=== PATIENT | female | born 1970 | race Caucasian/White ===

== ENCOUNTER 2017-04-14 21:40 | Emergency (ER) | payer BC ==
[~2017-04-14] VITALS: Ht 157.5 cm; Wt 80.0 kg
[2017-04-14 21:49] VITALS: Ht 157.5 cm; Wt 80.0 kg
--- NOTE | 2017-04-14 22:20 | ERA ---
ER Documentation Chief Complaint Date/Time DATE: 04/14/17 TIME: 22:19 Chief Complaint Bilateral leg edema x2 weeks. Hx of DM and HTN HPI The patient is a 46-year-old female, presenting to the ER because of chronic bilateral lower extremity edema, was for the last 2 weeks. She saw her doctor yesterday. She denies fever, chills, neck pain, chest pain, dyspnea, abdominal pain, dysuria, complaints of constipation. He does not smoke nor drink Past medical history: Diabetes mellitus, hypertension, CKD Past surgical history: None ROS All systems reviewed and are negative except as per history of present illness. Medications Home Meds Reported Medications Atorvastatin* (Atorvastatin*) 40 Mg Tablet, 40 MG PO QHS, #30 TAB 04/15/17 Metoprolol Tartrate* (Lopressor*) 25 Mg Tab, 25 MG PO BID, #60 TAB 04/15/17 Pentoxifylline* (Pentoxifylline*) 400 Mg Tablet.sa, 400 MG PO DAILY, TAB 04/15/17 Hydralazine Hcl* (Hydralazine Hcl*) 25 Mg Tab, 25 MG PO BEFORE MEALS, #120 TAB 04/15/17 Furosemide* (Furosemide*) 40 Mg Tablet, 40 MG PO AC BREAKFAST DINNER, TAB 04/15/17 Glipizide* (Glipizide*) 5 Mg Tablet, 5 MG PO AC BREAKFAST, TAB 04/15/17 Nifedipine* (Adalat CC*) 90 Mg Tablet.sa, 90 MG PO DAILY, #30 TAB.SA 04/15/17 Cholecalciferol* (Vitamin D3*) 1,000 Unit Tablet, 1000 UNIT PO DAILY, TAB 04/15/17 Allergies Allergies: Coded Allergies: No Known Allergy (Unverified , 04/14/17) Physical Exam Vitals Vital Signs Date Time Temp Pulse Resp B/P Pulse Ox O2 Delivery O2 Flow Rate FiO2 04/14/17 21:49 98.5 87 20 179/80 99 Physical Exam Const: No acute distress. Head: Atraumatic. Eyes: Normal Conjunctiva. ENT: Normal External Ears, Nose and Mouth. Neck: Full range of motion. No meningismus. Resp: Clear to auscultation bilaterally. Cardio: Regular rate and rhythm. Abd: Soft, non distended, normal bowel sounds, non tender. Skin: No petechiae or rashes. Back: No midline or flank tenderness. Ext: Bilateral lower extremity edema, minimal calf tenderness, no erythema, no crepitus Neur: Awake and alert. No focal deficit Psych: Normal Mood and Affect. Result Diagram: 04/14/17224804/14/172248 Results 24 hrs Laboratory Tests Test 04/14/17 22:49 04/15/17 00:04 White Blood Count 7.310^3/ul Red Blood Count 3.3210^6/ul Hemoglobin 10.0g/dl Hematocrit 28.2% Mean Corpuscular Volume 84.9fl Mean Corpuscular Hemoglobin 30.1pg Mean Corpuscular Hemoglobin Concent 35.5g/dl Red Cell Distribution Width 11.5% Platelet Count 56316^3/UL Mean Platelet Volume 10.1fl Neutrophils % 63.8% Lymphocytes % 21.4% Monocytes % 8.1% Eosinophils % 5.6% Basophils % 0.7% Nucleated Red Blood Cells % 0.0/100WBC Neutrophils # 4.710^3/ul Lymphocytes # 1.610^3/ul Monocytes # 0.610^3/ul Eosinophils # 0.410^3/ul Basophils # 0.110^3/ul Nucleated Red Blood Cells # 0.010^3/ul Prothrombin Time 11.9Sec Prothrombin Time Ratio 0.9 INR International Normalized Ratio 0.88 Activated Partial Thromboplast Time 24.4Sec Sodium Level 134mmol/L Potassium Level 4.6mmol/L Chloride Level 98mmol/L Carbon Dioxide Level 26mmol/L Anion Gap 15 Blood Urea Nitrogen 49mg/dl Creatinine 1.58mg/dl Glucose Level 383mg/dl Calcium Level 8.6mg/dl Total Bilirubin 0.1mg/dl Direct Bilirubin 0.00mg/dl Indirect Bilirubin 0.1mg/dl Aspartate Amino Transf (AST/SGOT) 25IU/L Alanine Aminotransferase (ALT/SGPT) 43IU/L Alkaline Phosphatase 198IU/L Total Protein 5.9g/dl Albumin 3.1g/dl Globulin 2.80g/dl Albumin/Globulin Ratio 1.10 Bedside Urine pH (LAB) 7.0 Bedside Urine Protein (LAB) 3+ Bedside Urine Glucose (UA) 0.50% Bedside Urine Ketones (LAB) Negative Bedside Urine Blood 1+ Bedside Urine Nitrite (LAB) Negative Bedside Urine Leukocyte Esterase (L Negative Procedures/MDM [facility] [address], [place], [place] [address] Radiology Main Line: [phone] DIAGNOSTIC IMAGING REPORT Patient: LAURENCE JIM : 1970 Age: 46 Sex: F MR #: [id number] DOS: 04/14/172235 Ordering MD: JEANINE MENDOZA MD Location: E/R Room/Bed: PROCEDURE: US bilateral lower extremity venous Doppler CLINICAL INDICATION: Bilateral swelling TECHNIQUE: Multiple sonographic images of the bilateral lower extremity deep venous system was obtained utilizing grayscale, color-flow, compressive sonography and Doppler imaging with augmentation. COMPARISON: There are no similar studies submitted for comparison. FINDINGS: There is normal compressibility and flow within the left common femoral, superficial femoral, popliteal, and calf veins. There is normal compressibility and flow within the right common femoral, superficial femoral, popliteal, and calf veins. IMPRESSION: No evidence of DVT within the lower extremities. RPTAT: HIKT .Refugio Kulkarni MD, MD Date Time Electronically viewed and signed by .Refugio Kulkarni MD, MD on 04/14/2017 23:20 .T/ CC: JEANINE MENDOZA MD [place] [address] Radiology Main Line: [phone] DIAGNOSTIC IMAGING REPORT Patient: LAURENCE JIM : 1970 Age: 46 Sex: F MR #: [id number] DOS: 04/14/172235 Ordering MD: JEANINE MENDOZA MD Location: E/R Room/Bed: PROCEDURE: Portable chest x-ray. CLINICAL INDICATION: 46-year-old female. Shortness of breath.. TECHNIQUE: Portable AP view of the chest. COMPARISON: None. FINDINGS: Cardiomediastinal contours are normal. Lungs are clear.. Negative for pleural effusion or pneumothorax.. No acute bony abnormality. IMPRESSION: Negative for evidence of acute chest process. RPTAT: HCTS Cristian Can Physician Date Time Electronically viewed and signed by Cristian Can Physician on 04/14/2017 23: 43 CS/ CC: JEANINE MENDOZA MD EKG: Read by emergency physician Rate/Rhythm: Normal Sinus Rhythm 81 beats/min QRS, ST, T-waves: No ST elevation, no T inversion Impression: Normal EKG MEDICAL MAKING DECISION: The patient is a 46-year-old female, presenting to the ER because of chronic bilateral lower extremity edema most likely due to chronic kidney disease. She is stable for outpatient follow-up The differential diagnoses considered include but are not limited to DVT, cellulitis, lymphedema, hepatic insufficiency Departure Diagnosis: Primary Impression: Peripheral edema Additional Impressions: Anemia Diabetes mellitus with hyperglycemia Condition: Good Comments I discussed the findings with the patient. I advised the patient to follow-up with her survey researcher in about 1-2 days, sooner if needed and return if any concern. JEANINE MENDOZA MD Apr 14, 2017 22:20
[2017-04-14 23:02] LABS: BASOPHIL # 0.1 10^3/ul (0.0-0.1); BASOPHILS % 0.7 % (0.0-2.0); EOSINOPHILS # 0.4 10^3/ul (0.0-0.5); EOSINOPHILS % 5.6 % (0.0-7.0); HEMATOCRIT 28.2 % (37.0-47.0); LYMPHOCYTES # 1.6 10^3/ul (0.8-2.9); LYMPHOCYTES % 21.4 % (15.0-51.0); MEAN CORPUSCULAR HEMOGLOBIN 30.1 pg (29.0-33.0); MEAN CORPUSCULAR HGB CONC 35.5 g/dl (32.0-37.0); MEAN CORPUSCULAR VOLUME 84.9 fl (82.0-101.0); MEAN PLATELET VOLUME 10.1 fl (7.4-10.4); MONOCYTE # 0.6 10^3/ul (0.3-0.9); MONOCYTES % 8.1 % (0.0-11.0); NEUTROPHIL # 4.7 10^3/ul (1.6-7.5); NEUTROPHILS % 63.8 % (39.0-77.0); PLATELET COUNT 245 10^3/UL (140-415); RED BLOOD COUNT 3.32 10^6/ul (4.20-5.40); RED CELL DISTRIBUTION WIDTH 11.5 % (11.5-14.5); WHITE BLOOD COUNT 7.3 10^3/ul (4.8-10.8)
[2017-04-14 23:19] LABS: INR 0.88; PROTIME 11.9 Sec (12.2-14.2); PT RATIO 0.9
[2017-04-14 23:20] LABS: PARTIAL THROMBOPLASTIN TIME 24.4 Sec (25.0-35.0)
--- NOTE | 2017-04-14 23:20 | RADRPT ---
PROCEDURE: US bilateral lower extremity venous Doppler CLINICAL INDICATION: Bilateral swelling TECHNIQUE: Multiple sonographic images of the bilateral lower extremity deep venous system was obt ained utilizing grayscale, color-flow, compressive sonography and Doppler imaging with augmentation. COMPARISON: There are no similar studies submitted for comparison. FINDINGS: There is normal compressibility and flow within the left common femoral, superficial femoral, poplit eal, and calf veins. There is normal compressibility and flow within the right common femoral, superficial femoral, popli teal, and calf veins. IMPRESSION: No evidence of DVT within the lower extremities. RPTAT: HIKT .Refugio Kulkarni MD, MD Date Time Electronically viewed and signed by .Refugio Kulkarni MD, MD on 04/14/2017 23:20 .T/
[2017-04-14 23:22] LABS: ALBUMIN 3.1 g/dl (3.3-4.9); ALBUMIN/GLOBULIN RATIO 1.1; BILIRUBIN,INDIRECT 0.1 mg/dl (0-1.1); BILIRUBIN,TOTAL 0.1 mg/dl (0.2-1.3); CALCIUM 8.6 mg/dl (8.4-10.2); CREATININE 1.58 mg/dl (0.44-1.00); POTASSIUM 4.6 mmol/L (3.5-5.1); TOTAL PROTEIN 5.9 g/dl (6.1-8.1)
--- NOTE | 2017-04-14 23:43 | RADRPT ---
PROCEDURE: Portable chest x-ray. CLINICAL INDICATION: 46-year-old female. Shortness of breath.. TECHNIQUE: Portable AP view of the chest. COMPARISON: None. FINDINGS: Cardiomediastinal contours are normal. Lungs are clear.. Negative for pleural effusion or pneumothorax.. No acute bony abnormality. IMPRESSION: Negative for evidence of acute chest process. RPTAT: HCTS Physician Tay Date Time Electronically viewed and signed by Cristian Can Physician on 04/14/2017 23:43 CS/
[2017-04-14 23:59] LABS: URINE BLOOD (Dip) POC 1+ (NEGATIVE)
[2017-04-15] MEDS ORDERED: FURO40TA4 PO (00:19)
[2017-04-15] MEDS ORDERED: NIFE90TA21 PO (00:19)
[2017-04-15] MEDS ORDERED: PENT400T2 PO (00:19)
[2017-04-15] MEDS ORDERED: CHOL100062 PO (00:19)
[2017-04-15] MEDS ORDERED: METO-448 PO (00:19)
[2017-04-15] MEDS ORDERED: GLIP5TAB13 PO (00:19)
[2017-04-15] MEDS ORDERED: HYDR-3671 PO (00:19)
[2017-04-15] MEDS ORDERED: ATOR40TA68 PO (00:20)
[2017-04-15 00:58] VITALS: BP 159/77; PULSE 75; RESP 17; TEMP 98.6
== END 2017-04-15 01:01 | disposition home or self-care (01) ==
LOC: E/R 21:40
DX: R60.0 Localized edema (principal); D64.9 Anemia, unspecified; E11.65 Type 2 diabetes mellitus with hyperglycemia; I12.9 Hypertensive chronic kidney disease with stage 1 through stage 4 chronic kidney disease, or unspecified chronic kidney disease; N18.9 Chronic kidney disease, unspecified; Z79.84 Long term (current) use of oral hypoglycemic drugs
CPT/HCPCS: 36415; 71010; 80053; 81003; 85025; 85610; 85730; 93005; 93970